=== PATIENT | male | born 1935 | race Caucasian/White ===

== ENCOUNTER 2018-03-08 09:02 | Emergency (ER) | payer OTHER ==
[~2018-03-08] VITALS: Ht 185.4 cm; Wt 84.1 kg
[~2018-03-08 09:02] MED LIST: A THRU Z SELEC1 EAC2 PO; ASCORBIC ACID500 M3 PO; ASPIRIN325 MG PO; BREWER'S YEAST500 MG PO; CALCIUM-MAGNES1 EAC4 PO; CLEOCIN300 MG PO; COENZYME Q10200 M2 PO; CRESTOR5 MG PO; FOLIC ACID1 MG PO; GABAPENTIN300 MG PO; GINSENG EXTRACT50 MG PO; GLUCOSAMINE1000 MG PO; LEVOTHYROXINE88 MCG PO; METOPROLOL SUCC50 MG PO; NIACIN 500 MG1 EACH PO; OMEGA 3 1,0001 EACH PO; OXYBUTYNIN CHLOR5 MG PO; PANTOPRAZOLE SO40 MG PO; PRAVACHOL10 MG PO; PYRIDOXINE HCL50 MG PO; TYLENOL REGULA325 MG PO; VICODIN 5-3001 EACH PO; VITAMIN B-12500 MC2 PO; VITAMIN D-32000 UNI1 PO; VITAMIN E400 UNI6 PO; WELCHOL625 MG PO
[2018-03-08 11:23] VITALS: BP 129/70
== END 2018-03-08 11:24 | disposition home or self-care (01) ==
LOC: EME 09:02
DX: R42 Dizziness and giddiness (principal); T50.995A Adverse effect of other drugs, medicaments and biological substances, initial encounter; I10 Essential (primary) hypertension; K21.9 Gastro-esophageal reflux disease without esophagitis; E78.5 Hyperlipidemia, unspecified; E03.9 Hypothyroidism, unspecified; I25.10 Atherosclerotic heart disease of native coronary artery without angina pectoris; Z79.891 Long term (current) use of opiate analgesic; Z79.82 Long term (current) use of aspirin; Z95.9 Presence of cardiac and vascular implant and graft, unspecified; Z96.641 Presence of right artificial hip joint; Z88.8 Allergy status to other drugs, medicaments and biological substances
CPT/HCPCS: 99281; 99284

== ENCOUNTER 2018-06-16 23:09 | Inpatient (IN) | payer OTHER ==
[~2018-06-16] VITALS: Ht 185.4 cm; Wt 84.7 kg
[~2018-06-16 23:09] MED LIST changes: +GLUCOSAMINE H1500 MG PO; -GLUCOSAMINE1000 MG PO; +NORCO 5/3251 TABLET PO; -VICODIN 5-3001 EACH PO; -VITAMIN B-12500 MC2 PO; +VITAMIN B-12500 MC5 SL
[2018-06-17 09:02] LABS: HEMATOCRIT 37.9 % (38.0-50.0); HEMOGLOBIN 12.9 G/DL (12.5-16.6); MCH 30.6 PG (29.0-34.0); MCV 89.8 FL (86-99); PLATELET COUNT 184 K/uL (156-360); RBC DIS.WIDTH-CV 14.3 % (11.8-14.6); RBC DIS.WIDTH-SD 46.6 % (39-53); RED BLOOD COUNT 4.22 M/uL (4.00-5.50); WHITE BLOOD COUNT 10.1 K/uL (4.1-10.2)
[2018-06-17 09:08] LABS: ALBUMIN 4.5 g/dL (3.2-4.8); CHLORIDE 105 mEq/L (99-109); POTASSIUM 4.2 mEq/L (3.7-5.4); SODIUM 140 mEq/L (136-147)
[2018-06-17 09:10] LABS: GLUCOSE 103 mg/dL (70-99); TOTAL PROTEIN 7.4 g/dL (6.4-8.3)
[2018-06-17 09:12] LABS: TOTAL BILIRUBIN 0.7 mg/dL (0.0-1.0)
[2018-06-17 09:14] LABS: ALKALINE PHOSPHATASE 96 IU/L (3-129); CREATININE 0.8 mg/dL (0.6-1.3); GFR ESTIMATE (CALCULATED) > 59 mL/min/ (58.99-99999)
[2018-06-17 09:15] LABS: AST (GOT) 22 IU/L (2-34); UREA NITROGEN (BUN) 12 mg/dL (9-23)
[2018-06-17 09:17] LABS: ALT (GPT) 14 IU/L (3-49)
[2018-06-17 09:54] VITALS: BP 148/77
[2018-06-17 11:12] LABS: INTER. NORMALIZED RATIO 1.1
[2018-06-17 11:14] LABS: PTT 31.3 SEC (25-37)
[2018-06-17] MEDS ORDERED: ST. JOSEPH ASPI81 MG PO (12:13)
[2018-06-17] MEDS ORDERED: ASPIR 8181 M1 PO (12:13)
[2018-06-17] MEDS ORDERED: MYRBETRIQ25 MG PO (12:15)
[2018-06-17] MEDS ORDERED: ANTIVERT25 MG PO (12:16)
[2018-06-17] MEDS ORDERED: ALPHA LIPOIC A200 MG PO (12:34)
[2018-06-17] MEDS ORDERED: PRESERVISION A1 EAC2 PO (12:36)
[2018-06-17] MEDS ORDERED: CALCIUM-MAGNES1 EA10 PO (12:39)
[2018-06-17] MEDS ORDERED: DHEA25 M1 PO ×2 (12:43→12:44)
[2018-06-17] MEDS ORDERED: CHARCOAL, ACTI260 MG PO (12:55)
[2018-06-17] MEDS ORDERED: KRILL OIL500 MG PO (12:55)
[2018-06-17] MEDS ORDERED: MAG GLYCINATE100 MG PO (12:56)
[2018-06-17] MEDS ORDERED: MSM500 MG PO (12:56)
[2018-06-17] MEDS ORDERED: [UNRECOGNIZED DRUG - OTHER] PO (12:57)
[2018-06-17] MEDS ORDERED: ZINC50 M2 PO (12:57)
[2018-06-17] MEDS ORDERED: VITAMIN B-650 MG PO (12:58)
[2018-06-17] MEDS ORDERED: FIBER THERAPY660 G1 PO (12:58)
[2018-06-17 14:52] LABS: APPEARANCE CLEAR ((CLEAR)); BILIRUBIN NEGATIVE; BLOOD NEGATIVE; COLOR YELLOW ((YELLOW)); GLUCOSE (STRIP) NEGATIVE; KETONES NEGATIVE; LEUKOCYTES NEGATIVE; NITRITE NEGATIVE; PROTEIN (STRIP) NEGATIVE; SPECIFIC GRAVITY 1.013 (1.000-1.030); UCUL ADDED? NO; UROBILINOGEN 0.2 MG/DL (0.2-1.0)
[2018-06-17 15:54] VITALS: BP 1449/71
[2018-06-17 19:04] VITALS: BP 134/68
[2018-06-17 23:22] VITALS: BP 143/72
[2018-06-18 04:20] VITALS: BP 147/84
[2018-06-18 06:40] LABS: HEMATOCRIT 33.4 % (38.0-50.0); HEMOGLOBIN 11.2 G/DL (12.5-16.6); MCH 29.8 PG (29.0-34.0); MCHC 33.5 G/DL (30.0-36.0); MCV 88.8 FL (86-99); PLATELET COUNT 162 K/uL (156-360); RBC DIS.WIDTH-CV 14.5 % (11.8-14.6); RBC DIS.WIDTH-SD 46.9 % (39-53); RED BLOOD COUNT 3.76 M/uL (4.00-5.50); WHITE BLOOD COUNT 8.2 K/uL (4.1-10.2)
[2018-06-18 07:01] LABS: CHLORIDE 105 MEQ/L (99-109); CREATININE 0.7 MG/DL (0.6-1.3); GFR ESTIMATE (CALCULATED) > 59 mL/min/ (58.99-99999); GLUCOSE 99 mg/dL (70-99); SODIUM 139 MEQ/L (136-147); UREA NITROGEN (BUN) 12 mg/dL (9-23)
[2018-06-18 07:48] VITALS: BP 135/70
[2018-06-18 11:34] VITALS: BP 140/71
[2018-06-18 16:02] VITALS: BP 143/69
[2018-06-18] MEDS ORDERED: BENEFIBER152 GM PO (16:22)
[2018-06-18 19:21] VITALS: BP 136/65
[2018-06-18 23:04] VITALS: BP 148/77
[2018-06-19 04:39] VITALS: BP 140/79
[2018-06-19 08:14] VITALS: BP 127/79
[2018-06-19 12:18] VITALS: BP 138/84
[2018-06-19 16:19] VITALS: BP 148/70
[2018-06-20 07:52] VITALS: BP 122/58
[2018-06-20 15:24] VITALS: BP 112/62
[2018-06-21 00:11] VITALS: BP 141/66
[2018-06-21 08:00] VITALS: BP 131/61
[2018-06-21 09:03] LABS: HEMATOCRIT 35.4 % (38.0-50.0); HEMOGLOBIN 11.7 G/DL (12.5-16.6); MCH 29.5 PG (29.0-34.0); MCHC 33.1 G/DL (30.0-36.0); MCV 89.4 FL (86-99); PLATELET COUNT 192 K/uL (156-360); RBC DIS.WIDTH-CV 14.3 % (11.8-14.6); RBC DIS.WIDTH-SD 46.8 % (39-53); RED BLOOD COUNT 3.96 M/uL (4.00-5.50); WHITE BLOOD COUNT 7.8 K/uL (4.1-10.2)
[2018-06-21 09:26] LABS: CHLORIDE 106 MEQ/L (99-109); CREATININE 0.7 MG/DL (0.6-1.3); GFR ESTIMATE (CALCULATED) > 59 mL/min/ (58.99-99999); GLUCOSE 103 mg/dL (70-99); POTASSIUM 4.1 MEQ/L (3.7-5.4); SODIUM 139 MEQ/L (136-147); UREA NITROGEN (BUN) 15 mg/dL (9-23)
[2018-06-21 15:59] VITALS: BP 130/70
[2018-06-22 08:55] VITALS: BP 129/62
[2018-06-22 17:02] VITALS: BP 124/81
[2018-06-22 23:13] VITALS: BP 133/77
[2018-06-23 08:12] VITALS: BP 143/76
[2018-06-23 17:29] VITALS: BP 117/62
[2018-06-24 07:29] VITALS: BP 144/69
[2018-06-24 12:11] VITALS: BP 116/61
[2018-06-24 15:33] VITALS: BP 139/83
[2018-06-24 23:34] VITALS: BP 115/80
[2018-06-25 08:09] VITALS: BP 159/88
[2018-06-25 17:00] VITALS: BP 132/66
[2018-06-25 23:01] VITALS: BP 110/68
[2018-06-26 08:09] VITALS: BP 119/59
[2018-06-26 16:04] VITALS: BP 119/65
[2018-06-27 08:33] VITALS: BP 123/67
[2018-06-27 16:17] VITALS: BP 123/63
[2018-06-27 23:16] VITALS: BP 158/76
[2018-06-28 07:29] LABS: BASOPHIL (%) 0.4 % (0-1); EOSINOPHIL (%) 2.4 % (0-5); EOSINOPHIL COUNT 0.2 K/uL (0-0.3); HEMATOCRIT 33.6 % (38.0-50.0); HEMOGLOBIN 11.3 G/DL (12.5-16.6); IMMATURE GRANULOCYTE (%) 0.2 % (0.0-0.7); LYMPHOCYTE (%) 15.3 % (15-42); LYMPHOCYTE COUNT 1.3 K/uL (1.0-2.8); MCHC 33.6 G/DL (30.0-36.0); MCV 89.1 FL (86-99); MONOCYTE (%) 8.1 % (3-12); MONOCYTE COUNT 0.7 K/uL (0-0.8); NEUTROPHIL (%) 73.6 % (45-76); NEUTROPHIL COUNT 6.2 K/uL (1.8-6.4); RBC DIS.WIDTH-CV 13.7 % (11.8-14.6); RBC DIS.WIDTH-SD 44.4 % (39-53); RED BLOOD COUNT 3.77 M/uL (4.00-5.50); WHITE BLOOD COUNT 8.4 K/uL (4.1-10.2)
[2018-06-28 07:38] VITALS: BP 138/73
[2018-06-28 07:40] LABS: PLATELET COUNT 319 K/uL (156-360)
[2018-06-28 07:53] LABS: CHLORIDE 106 MEQ/L (99-109); CREATININE 0.7 MG/DL (0.6-1.3); GFR ESTIMATE (CALCULATED) > 59 mL/min/ (58.99-99999); GLUCOSE 102 mg/dL (70-99); SODIUM 140 MEQ/L (136-147); UREA NITROGEN (BUN) 12 mg/dL (9-23)
[2018-06-28 10:56] VITALS: BP 133/64
[2018-06-28] MEDS ORDERED: DONEPEZIL HCL5 MG PO (12:29)
[2018-06-28] MEDS ORDERED: MIRTAZAPINE7.5 MG PO (12:29)
[2018-06-28] MEDS ORDERED: COLESEVELAM HC625 MG PO (12:29)
[2018-06-28 15:11] VITALS: BP 124/76
== END 2018-06-28 15:25 | DRG 534 ==
LOC: EME → EDBD 23:09 → EME 23:09 → TRA 23:09 → 3EAST 06-17 07:32 → EDOF 06-17 07:32 → ENRESERV 06-17 07:36 → 3EAST 06-17 09:39
PROVIDERS: Hospitalist; Internal Medicine; Nurse Practitioner Adult Health
DX: S72.461A Displaced supracondylar fracture with intracondylar extension of lower end of right femur, initial encounter for closed fracture (principal); I25.10 Atherosclerotic heart disease of native coronary artery without angina pectoris; I10 Essential (primary) hypertension; W01.0XXA Fall on same level from slipping, tripping and stumbling without subsequent striking against object, initial encounter; Z96.641 Presence of right artificial hip joint; Z95.5 Presence of coronary angioplasty implant and graft; E03.9 Hypothyroidism, unspecified; E78.5 Hyperlipidemia, unspecified; K21.9 Gastro-esophageal reflux disease without esophagitis; H91.90 Unspecified hearing loss, unspecified ear; F05 Delirium due to known physiological condition; F01.50 Vascular dementia, unspecified severity, without behavioral disturbance, psychotic disturbance, mood disturbance, and anxiety; Z79.82 Long term (current) use of aspirin; Z79.899 Other long term (current) drug therapy; Z91.81 History of falling; M85.80 Other specified disorders of bone density and structure, unspecified site
CPT/HCPCS: 70450; 73502; 73552; 73564; 73700; 80048; 80053; 81003; 82948; 85025; 85027; 85610; 85730; 97530 GO; 97530 GP; 99281; 99284; J1650